=== PATIENT | female | born 1960 | race Two or more races ===

== ENCOUNTER 2022-12-20 12:19 | Emergency (ER) | payer OTHER ==
[~2022-12-20] VITALS: Ht 162.6 cm; Wt 106.6 kg
[2022-12-20 19:36] LABS: PH,URINE 5.5 (5.0-8.0); URINE APPEARANCE Cloudy; URINE BILIRRUBIN Negative (NEGATIVE); URINE BLOOD Large; URINE COLOR Yellow; URINE GLUCOSE Negative (NEGATIVE); URINE LEUKOCYTE Trace; URINE NITRATE Negative; URINE PROTEIN Trace (NEGATIVE); URINE UROBILINOGEN 0.2 E.U./dl
[2022-12-20 19:37] LABS: URINE BACTERIA 42.8 uL (0.0-1933); URINE EPITHELIAL CELLS 14.6 uL (0.0-38.8); URINE RBC 1101.8 uL (0.0-20.8); URINE WBC 26.7 uL (0.0-23.2)
[2022-12-20 20:52] LABS: HEMATOCRIT 39.2 % (36.0-45.00); HEMOGLOBIN 13.3 g/dL (12.0-15.00); MEAN CELL VOLUME 93.4 fL (80.00-100.00); MEAN CORPUSCULAR HEMOGLOBIN 31.7 pg (27.00-32.0); PLATELET COUNT 274 K/uL (150-450); RED CELL DISTRIBUTION WIDTH 13.4 % (11.5-14.5)
[2022-12-20 21:16] LABS: CALCIUM 9.6 mg/dL (8.5-10.1); CREATININE SERUM 0.68 mg/dL (0.55-1.02); GFR 87.67; POTASSIUM 3.56 mEq/L (3.5-5.1)
== END 2022-12-20 22:37 | disposition home or self-care (01) ==
LOC: ER 12:19
PROVIDERS: General Practice
DX: R30.0 Dysuria (principal); N23 Unspecified renal colic; M19.90 Unspecified osteoarthritis, unspecified site; N20.0 Calculus of kidney; K80.20 Calculus of gallbladder without cholecystitis without obstruction; N21.0 Calculus in bladder